=== PATIENT | female | born 1990 | race Caucasian/White ===

== ENCOUNTER 2021-04-15 00:38 | Day surgery (SDC) | payer OTHER, SELFPAY ==
[2021-04-10 17:44] VITALS: BMI 31.8
--- NOTE | 2021-04-15 08:44 | WPDHPUPDATE1 ---
History and Physical Update Update Date/Time: 04/15/21 08:44 History and Physical has been reviewed, including an updated exam of the patient. There are NO changes in the patient's condition. Risks, benefits, and alternatives have been discussed and questions answered. Patient agrees to proceed with procedure.
--- NOTE | 2021-04-15 08:45 | PM.HPGS ---
History of Present Illness History of Present Illness Consent: Risks, benefits, and alternatives have been discussed and questions answered. Patient agrees to proceed with procedure. Chief complaint: menorrhagia Narrative: Laureen Mcdonald is a 30 year old female with heavy menstrual cycles. Pelvic ultrasound did reveal a 1 small intramural fibroid. Uterus is normal size. Patient in addition is had increased cramping. It is recommended to proceed with D&C hysteroscopy. Risks of infection, bleeding, perforation, and possible pathology were reviewed in the office. Patient voices understanding and agrees to proceed. Review of Systems Review of Systems: not repeated day of surgery; patient states no changes in status Gastrointestinal: Gastrointestinal: Reports abdominal pain and Reports diarrhea Psychiatric: Psychiatric: Reports anxiety PMFSH Past Medical History Medical History (Updated 04/15/21 @ 08:51 by Laureen Mejia MD) ADHD IBS (irritable bowel syndrome) (normal spontaneous vaginal delivery) x2 PTSD (post-traumatic stress disorder) Surgical History Surgical History (Updated 04/15/21 @ 08:50 by Laureen Mejia MD) H/O tubal ligation History of laparoscopic cholecystectomy Social History Social History Smoking status: Heavy tobacco smoker Tobacco type: cigarettes Additional smoking assessment comments: 1 ppd x 13 years Alcohol intake: current Drinks per week: 4 Alcohol use details: weekends Substance use type: marijuana Other substance usage details: daily at hs Living arrangements: with family Spiritual care concerns: No Meds Home Medications and Allergies Home Medications Medication Instructions Recorded Confirmed Type albuterol sulfate 1 puff INHALATION PRN PRN 04/10/21 04/10/21 History alprazolam 0.5 mg PO PRN 04/10/21 04/10/21 History biotin-keratin [Biotin Plus 2 tablet PO DAILY 04/10/21 04/10/21 History Keratin] cetirizine 10 mg PO DAILY 04/10/21 04/10/21 History cholecalciferol (vitamin D3) 100 mcg PO DAILY 04/10/21 04/10/21 History [Vitamin D3] cyclosporine [Restasis] 1 drp EACH EYE DAILY 04/10/21 04/10/21 History dextroamphetamine-amphetamine 20 mg PO DAILY 04/10/21 04/10/21 History dicyclomine 20 mg PO DAILY 04/10/21 04/10/21 History elderberry fruit [Elderberry] 200 mg PO DAILY 04/10/21 04/10/21 History hydrocodone-acetaminophen 3 tablet PO MONTHLY 04/10/21 04/10/21 History ibuprofen [IBU] 600 mg PO PRN 04/10/21 04/10/21 History lactobacillus combination no.4 3,000 mmu cells PO DAILY 04/10/21 04/10/21 History [Probiotic] montelukast 10 mg PO DAILY 04/10/21 04/10/21 History Allergies Allergy/AdvReac Type Severity Reaction Status Date / Time amoxicillin Allergy Intermediate Hives Verified 04/10/21 17:02 Exam Const: General: healthy appearing and alert Orientation/consciousness: patient oriented x3 GI: GI Palp: Yes Soft to palpation, No Tenderness to palpation present (GI) and No Palpable mass present : External Female Exam: normal external appearance Speculum Exam - Vagina: normal appearance of the vagina and normal vaginal discharge Speculum Exam - Cervix: normal appearance of the cervix Bimanual exam- vagina & uterus: uterine size normal and consistency normal Bimanual Exam- Adnexa, other: normal adnexae and No adnexal tenderness Neuro: General: patient oriented x3 Assessment and Plan Assessment and plan (1) Menorrhagia: Code(s): N92.0 - Excessive and frequent menstruation with regular cycle Status: Acute Assessment and Plan: Plan to proceed with hysteroscopy with D&C
[2021-04-15 08:57] VITALS: BP 119/76; PULSE 81; RESP 20; TEMP 36.5; O2SAT 100
[2021-04-15] MEDS: ACETAMINOPHEN 500 MG TABLET 1000 MG PO (09:13)
[2021-04-15] MEDS: LACTATED RINGERS 1,000 ML 30 ML IV CONT (09:25)
--- NOTE | 2021-04-15 09:56 | WPDANESEPPF ---
Anes - Initial Pre Proc Eval Procedure: Operation Date: 04/15/21 10:30 Proposed Procedures p Hysteroscopy Dilation and Curettage - Laureen Mejia MD Date/Time: 04/15/21 09:56 Surgeon: Laureen Mejia MD Pre Op Diagnosis: menorrhagia Patient Data Age: 30 Gender: F Height: 1.7 m Weight: 91.2 kg Last Vital Signs Temp 36.5 C 04/15/21 08:57 Pulse 81 04/15/21 08:57 Resp 20 04/15/21 08:57 BP 119/76 04/15/21 08:57 Pulse Ox 100 04/15/21 08:57 Allergies Allergy/AdvReac Type Severity Reaction Status Date / Time amoxicillin Allergy Intermediate Hives Verified 04/10/21 17:02 Home Medications Medication Instructions Recorded Confirmed Type albuterol sulfate 1 puff INHALATION PRN PRN 04/10/21 04/15/21 History alprazolam 0.5 mg PO PRN 04/10/21 04/15/21 History biotin-keratin [Biotin Plus 2 tablet PO DAILY 04/10/21 04/15/21 History Keratin] cetirizine 10 mg PO DAILY 04/10/21 04/15/21 History cholecalciferol (vitamin D3) 100 mcg PO DAILY 04/10/21 04/15/21 History [Vitamin D3] cyclosporine [Restasis] 1 drp EACH EYE DAILY 04/10/21 04/15/21 History dextroamphetamine-amphetamine 20 mg PO DAILY 04/10/21 04/15/21 History dicyclomine 20 mg PO DAILY 04/10/21 04/15/21 History elderberry fruit [Elderberry] 200 mg PO DAILY 04/10/21 04/15/21 History hydrocodone-acetaminophen 3 tablet PO MONTHLY 04/10/21 04/15/21 History ibuprofen [IBU] 600 mg PO PRN 04/10/21 04/15/21 History lactobacillus combination no.4 3,000 mmu cells PO DAILY 04/10/21 04/15/21 History [Probiotic] montelukast 10 mg PO DAILY 04/10/21 04/15/21 History Patient hx anesthesia problems: none Family hx anesthesia problems: none PMFSH Past Medical History Medical History ADHD IBS (irritable bowel syndrome) (normal spontaneous vaginal delivery) x2 PTSD (post-traumatic stress disorder) Surgical History Surgical History H/O tubal ligation History of laparoscopic cholecystectomy Social History Social History Smoking status: Heavy tobacco smoker Tobacco type: cigarettes Additional smoking assessment comments: 1 ppd x 13 years Alcohol intake: current Drinks per week: 4 Alcohol use details: weekends Substance use type: marijuana Other substance usage details: daily at hs Living arrangements: with family Spiritual care concerns: No Anes - Eval Final PreProcedure Day of Procedure 04/15/21 09:56 Patient weight: obese Heart: regular rate and rhythm Lungs: clear to auscultation Airway: Mallampati scale class 1 and other (3+ tonsils) Neurological: alert and oriented Last oral intake: >/= 8 hours ASA classification: III Emergent: no Anesthetic plan: proceed Anesthesia type and monitoring: general GIVS and standard monitoring Informed Consent: The patient's anesthetic plan and its attendant risks and benefits were discussed with the patient/family/POA. Questions were solicited and answers provided to the satisfaction of the patient/family/POA.
--- NOTE | 2021-04-15 10:33 | W.PM.PROC2 ---
Procedure Note - Detailed Date of Procedure 04/15/21 Pre-op Diagnosis menorrhagia Post-op Diagnosis same Procedure Performed D&C hysteroscopy Surgeon Laureen Mejia MD Anesthesia MAC and local Findings Uterus sounds to 8cm in appears grossly normal Description of Procedure The patient is taken to the operating room and placed under anesthesia in the dorsal lithotomy position. She was prepped and draped in the usual sterile fashion. The bivalve speculum was placed in the vagina, the tenaculum was placed on the anterior lip of the cervix, the cervix is injected with 1% lidocaine, and the cervix serially dilated with Hegars. The diagnostic hysteroscope was placed with no abnormalities noted. The hysteroscope was removed. The sharp curette is used to curette the endometrium until a good uterine cry was noted in all areas. All instruments are removed. Sponge, needle, and instrument counts are correct per the OR staff. The patient is awakened from anesthesia and taken to recovery in stable condition. Estimated Blood Loss 5 Drains No Packing No Pathology yes (Endometrial) Complications No immediate complications Condition stable Disposition PACU
[2021-04-15 10:37] VITALS: BP 134/80; PULSE 72; RESP 12; O2SAT 95
[2021-04-15 11:07] VITALS: BP 112/64; PULSE 76; RESP 12; O2SAT 95
[2021-04-15] MEDS: fentaNYL CITRATE INJ (*CRX) 100 MCG/2 ML VIAL 25 MCG IV PUSH ×2 (11:27→11:29)
[2021-04-15 11:37] VITALS: BP 115/67; PULSE 66; RESP 12
[2021-04-15] MEDS: KETOROLAC 30 MG/ML VIAL (*BKC) IV PUSH (11:38)
[2021-04-15 11:50] VITALS: BP 109/68; PULSE 70; RESP 12
== END 2021-04-15 12:00 | disposition home or self-care (01) ==
PROVIDERS: Visit Provider Obstetrics & Gynecology Gynecology
PROC: 0U5B8ZZ Destruction of Endometrium, Via Natural or Artificial Opening Endoscopic (ICD-10-PCS; CPT 58563; principal; 2021-04-15 10:30)
DX: N92.0 Excessive and frequent menstruation with regular cycle (principal); Z79.51 Long term (current) use of inhaled steroids; F90.9 Attention-deficit hyperactivity disorder, unspecified type; K58.9 Irritable bowel syndrome, unspecified; F43.10 Post-traumatic stress disorder, unspecified; F17.210 Nicotine dependence, cigarettes, uncomplicated; F12.90 Cannabis use, unspecified, uncomplicated; E66.9 Obesity, unspecified; Z68.31 Body mass index [BMI] 31.0-31.9, adult
CPT/HCPCS: 58558; 88305; A9270; J1100; J1885; J2250; J2405; J2704; J3010; J7030; J7120